=== PATIENT | female | born 1965 | race Caucasian/White ===

== ENCOUNTER 2019-03-17 17:33 | Inpatient (IN) ==
[2019-03-17] MEDS ORDERED: LORazepam 2 MG/1 ML VIAL IV PRN (18:58)
[2019-03-17] MEDS ORDERED: chlordiazePOXIDE 25 MG CAPSULE PO PRN (18:58)
[2019-03-17] MEDS ORDERED: SODIUM CHLORIDE 0.9% 1,000 ML IV SCH (19:00)
[2019-03-17] MEDS: DEXTROSE 5% NACL 0.9% 1,000 ML IV SCH (19:51)
[2019-03-17 20:06] LABS: Basophils % 0.9 % (0.0-0.8); Eosinophils # 0.1 10*3/uL (0.0-0.87); Eosinophils % 1.7 % (0.00-10.9); Hematocrit 36.5 VOL% (35.7-47.0); Immature Granulocytes % 0.2 %; Immature Granulocytes Absolute 0.01 #; Lymphocytes # 1.7 10*3/uL (1.4-4.0); Mean Corpuscular HGB Conc 32.9 GM/DL (32-36); Mean Corpuscular Volume 102.8 FL (87-102); Mean Platelet Volume 10.5 FL (9.6-12.0); Monocytes % 10.4 % (1.7-12.7); Neutrophils % 49.8 % (38.7-73.9); Platelet Count 298 T/CUMM (130-400); Red Blood Count 3.55 MC/CUMM (3.8-5.5); Red Cell Distribution Width 13.5 % (9.3-17.3); White Blood Count 4.6 T/CUMM (4-12)
[2019-03-17 20:14] LABS: INR 0.9; PT Patient Result 10.2 SECS
[2019-03-17] MEDS: ACETAMINOPHEN 325 MG TABLET PO PRN (20:17)
[2019-03-17 20:26] LABS: Apearance,Urine CLEAR (Clear); Bacteria,Urine Occasional /HPF (Few); Bilirubin,Urine Negative (Negative); Blood, Urine Small mg/dL (Negative); Glucose,Urine (UA) Negative (Negative); Ketones,Urine 80 mg/dL (Negative); Mucus,Urine Occasional /LPF (Occasional); Nitrite,Urine Negative (Negative); Protein,Urine Negative; RBC,Urine 2 /HPF (0-4); Squamous Epithelial Cell,Urine Occasional /HPF (0-10); Urine Color Yellow (Yellow); Urine Specific Gravity 1.021 (1.001-1.035); WBC,Urine 6 /HPF (0-6)
[2019-03-17 20:28] LABS: Barbiturates Screen,Urine Negative (Negative); Benzodiazepines Screen,Urine Positive (Negative); Cannabinoid Screen,Urine Negative (Negative); Opiate Screen,Urine Negative (Negative); Phencyclidine Screen,Urine Negative (Negative)
[2019-03-17 20:35] LABS: Albumin 3.9 G/DL (3.4-5.0); Bilirubin,Total 0.7 MG/DL (0.2-1.0); Calcium 9.3 MG/DL (8.5-10.1); Osmolality,Calculated 274.8 MOS/KG (273-304); Thyroid Stimulating Hormone 3.67 uIU/ml (0.358-3.74); Total Protein 7.3 G/DL (6.4-8.3)
[2019-03-17 20:40] LABS: Folate > 24.0 NG/ML (5.4-24.0); Vitamin B12 329 PG/ML (211-911)
[2019-03-17 21:41] LABS: Hepatitis B Core IgM Quant 0.14 Index; Hepatitis B Surface Ag Quant < 0.10 Index; Hepatitis B Surface Ag Result Negative (Negative); Hepatitis C Virus Ab Quant 0.05 Index; Hepatitis C Virus Ab Result Negative (Negative)
[2019-03-17] MEDS: chlordiazePOXIDE 25 MG CAPSULE PO SCH (23:52)
[2019-03-18 05:17] LABS: Risk Ratio 1.78; VLDL CHOLESTEROL 13.8 MG/DL
[2019-03-18] MEDS: chlordiazePOXIDE 25 MG CAPSULE PO SCH ×4 (05:48→23:54)
[2019-03-18] MEDS ORDERED: LINACLOTIDE 145 MCG CAPSULE PO SCH (07:30)
[2019-03-18] MEDS: MULTIVITAMIN (CENTRUM) TABLET PO SCH (08:34)
[2019-03-18] MEDS: LINACLOTIDE 145 MCG CAPSULE PO SCH (08:34)
[2019-03-18] MEDS: DULoxetine 30 MG CAPSULE PO SCH (08:34)
[2019-03-18] MEDS: FOLIC ACID 1 MG TABLET PO SCH (08:34)
[2019-03-18] MEDS: ACETAMINOPHEN 325 MG TABLET PO PRN (08:36)
[2019-03-18] MEDS: PANTOPRAZOLE 40 MG VIAL IV SCH (08:37)
[2019-03-18] MEDS: THIAMINE 200 MG/2 ML VIAL IV SCH (08:40)
[2019-03-18] MEDS: ENOXAPARIN 40 MG/0.4 ML SYRINGE SUBCUT SCH (08:42)
[2019-03-18] MEDS: IBUPROFEN 600 MG TABLET PO PRN ×2 (11:09→20:26)
[2019-03-18] MEDS: DEXTROSE 5% NACL 0.9% 1,000 ML IV SCH (11:11)
[2019-03-19] MEDS: DEXTROSE 5% NACL 0.9% 1,000 ML IV SCH ×2 (00:42→12:43)
[2019-03-19] MEDS: chlordiazePOXIDE 25 MG CAPSULE PO SCH ×4 (05:44→23:44)
[2019-03-19] MEDS: THIAMINE 200 MG/2 ML VIAL IV SCH (09:00)
[2019-03-19] MEDS: PANTOPRAZOLE 40 MG VIAL IV SCH (09:00)
[2019-03-19] MEDS: ENOXAPARIN 40 MG/0.4 ML SYRINGE SUBCUT SCH (09:00)
[2019-03-19] MEDS: MULTIVITAMIN (CENTRUM) TABLET PO SCH (09:01)
[2019-03-19] MEDS: IBUPROFEN 600 MG TABLET PO PRN (09:01)
[2019-03-19] MEDS: LINACLOTIDE 145 MCG CAPSULE PO SCH (09:01)
[2019-03-19] MEDS: DULoxetine 30 MG CAPSULE PO SCH (09:01)
[2019-03-19] MEDS: FOLIC ACID 1 MG TABLET PO SCH (09:01)
[2019-03-19] MEDS ORDERED: ALUMINUM/MAGNES/SIMETH MAX STR 30 ML UDCUP PO PRN (13:13)
[2019-03-19] MEDS ORDERED: MAGNESIUM HYDROXIDE SUSP 30 ML UDCUP PO PRN (13:13)
[2019-03-19] MEDS: BACLOFEN 10 MG TABLET PO PRN ×2 (14:38→21:40)
[2019-03-19] MEDS ORDERED: IBUPROFEN 800 MG TABLET PO PRN (20:46)
[2019-03-20] MEDS: DEXTROSE 5% NACL 0.9% 1,000 ML IV SCH (03:41)
[2019-03-20] MEDS: chlordiazePOXIDE 25 MG CAPSULE PO SCH (06:24)
[2019-03-20] MEDS: LINACLOTIDE 145 MCG CAPSULE PO SCH (08:58)
[2019-03-20] MEDS ORDERED: THIAMINE 100 MG TABLET PO SCH (09:00)
[2019-03-20] MEDS ORDERED: PANTOPRAZOLE 40 MG TABLET PO SCH (09:00)
[2019-03-20] MEDS: FOLIC ACID 1 MG TABLET PO SCH (09:01)
[2019-03-20] MEDS: MULTIVITAMIN (CENTRUM) TABLET PO SCH (09:01)
[2019-03-20] MEDS: DULoxetine 30 MG CAPSULE PO SCH (09:01)
[2019-03-20] MEDS: BACLOFEN 10 MG TABLET PO PRN (09:02)
[2019-03-20] MEDS: ENOXAPARIN 40 MG/0.4 ML SYRINGE SUBCUT SCH (09:04)
[2019-03-20 11:27] VITALS: BP 116/71
== END 2019-03-20 12:24 | disposition home or self-care (01) | DRG 897 ==
LOC: N.4E 17:47
PROVIDERS: ADMIT Internal Medicine; ATTEND Internal Medicine